=== PATIENT | male | born 1940 | race Caucasian/White ===

== ENCOUNTER 2019-10-30 01:45 | Day surgery (SDC) | payer MEDICARE, BC, SELFPAY ==
[2019-10-27 10:31] VITALS: BMI 26.6
--- NOTE | ~2019-10-30 | XR_ITS ---
EXAMINATION: XR retrograde pyelo w/stent RT EXAM DATE: 10/30/2019 11:41 INDICATION: Stone extraction. TECHNIQUE: Fluoroscopy used during XR retrograde pyelo w/stent RT performed by Dr. Francisco leo MD. The DAP for this procedure was 0.3 mGym2. FINDINGS: The right ureter was cannulated, injected. There is moderate right-sided hydronephrosis. A right-sided double-J ureteral stent was placed. Correlate with procedure note. IMPRESSION: Fluoroscopy used during XR retrograde pyelo w/stent RT. Reviewed, dictated and finalized at location [facility].
--- NOTE | 2019-10-30 10:22 | WPDHPUPDATE1 ---
History and Physical Update Update Date/Time: 10/30/19 10:22 History and Physical has been reviewed, including an updated exam of the patient. There are NO changes in the patient's condition. Risks, benefits, and alternatives have been discussed and questions answered. Patient agrees to proceed with procedure.
--- NOTE | 2019-10-30 10:39 | ECG_ITS ---
Measurements Intervals [place] Rate: 59 P: -5 FL: 157 QRS: -54 QRSD: 163 T: 134 QT: 453 QTc: 451 Interpretive Statements SINUS BRADYCARDIA LEFT AXIS DEVIATION LEFT BUNDLE BRANCH BLOCK ABNORMAL ECG Electronically Signed On 10-30-2019 11:33:36 CDT by Jean Tobias D.O.
[2019-10-30] MEDS: LACTATED RINGERS 1,000 ML 30 ML IV CONT (10:55)
--- NOTE | 2019-10-30 10:55 | WPDANESEPPF ---
Anes - Initial Pre Proc Eval Procedure: Operation Date: 10/30/19 13:00 Proposed Procedures p Cystoscopy, Right Ureteroscopy, Right Retrograde Pyelogram, Right Stone Extraction, Possible Left Stent Placement - Francisco Sweeney MD s Possible Holmium Laser Procedure - Francisco Sweeney MD Date/Time: 10/30/19 10:55 Surgeon: Francisco Sweeney MD Pre Op Diagnosis: right ureteral calculus Patient Data Age: 79 Gender: M Height: 5 ft 8 in Weight: 79.3 kg Allergies Allergy/AdvReac Type Severity Reaction Status Date / Time Penicillins Allergy Severe SORE Verified 10/30/19 10:47 INJECTION SITE propoxyphene Allergy Severe Palpitation Verified 10/30/19 10:47 s aspirin Allergy Unknown Abdominal Verified 10/30/19 10:47 Pain naproxen Allergy Unknown Abdominal Verified 10/30/19 10:47 Pain niacin AdvReac Severe HOT FACE Verified 10/30/19 10:47 Home Medications Medication Instructions Recorded Confirmed Type amlodipine 5 mg PO QPM 10/27/19 10/30/19 History cetirizine [Zyrtec] 5 mg PO QPM 10/27/19 10/30/19 History flaxseed oil 1,000 mg PO QPM 10/27/19 10/30/19 History multivitamin,mo-[id number] 1 tablet PO QPM 10/27/19 10/30/19 History [Complete Multivitamin] Patient hx anesthesia problems: none Family hx anesthesia problems: none PMFSH Past Medical History Medical History Aortic stenosis Bladder cancer Hypertension Anes - Eval Final PreProcedure Day of Procedure 10/30/19 10:55 Patient weight: overweight Heart: regular rate and rhythm and murmur Lungs: decreased breath sounds Airway: Mallampati scale class II Neurological: alert and oriented Last oral intake: >/= 8 hours ASA classification: III Emergent: no Anesthetic plan: proceed Anesthesia type and monitoring: general LMA and standard monitoring Informed Consent: The patient's anesthetic plan and its attendant risks and benefits were discussed with the patient/family/POA. Questions were solicited and answers provided to the satisfaction of the patient/family/POA.
[2019-10-30 11:01] VITALS: BP 146/60; PULSE 66; RESP 16; TEMP 37
[2019-10-30] MEDS: levoFLOXacin 500 MG/D5W 100 ML 500 MG/100 ML BAG 100 MG IVPB (11:11)
[2019-10-30] MEDS: LIDOCAINE HCL 2% GEL UROJET 10 ML PKG MUCOUS MEM (11:39)
--- NOTE | 2019-10-30 11:40 | PM.PROC ---
Procedure Note - Detailed Date of procedure: 10/30/19 Pre-op diagnosis: right ureteral calculus Post-op diagnosis: same Procedure performed: Cystoscopy, right retrograde pyelogram, right ureteroscopy with stone extraction, 4.8 Upper Sorbian stent placement Description of procedure: Patient was taken to the operative suite correctly identified. Once general anesthesia was obtained he was placed in the dorsal lithotomy position and prepped and draped in the usual sterile fashion. Twenty-two Upper Sorbian scope was inserted in the bladder. There are no tumors noted. The right ureteral orifice was Muniz with a guidewire. It was dilated with an 8/10 dilator. Rigid ureteral scope was then inserted the stone was visualized. We were able to retrieve it in its entirety using an escape basket. Pyelogram was then performed to confirm placement of the stent. A 4.8 contour stent was then placed with the proximal end coiled in the renal pelvis and the distal end in the bladder. Bladder was drained. 2% viscous lidocaine was inserted into the urethra patient was taken recovery room stable condition. Discharged home with pain meds and antibiotics. He will follow up 1 weeks time for stent removal. Anesthesia: GLMA Surgeon: Francisco Sweeney MD Drains: Yes Packing: No Pathology: yes Complications: No immediate complications Condition: stable Disposition: PACU
[2019-10-30 11:41] VITALS: BP 129/74; PULSE 95; RESP 14; TEMP 36.3; O2SAT 100
[2019-10-30 11:55] VITALS: BP 132/80; PULSE 88; RESP 12; O2SAT 95
[2019-10-30 12:06] VITALS: BP 132/79; PULSE 73; RESP 12
[2019-10-30 12:30] VITALS: BP 136/75; PULSE 67; RESP 14
== END 2019-10-30 12:48 | disposition home or self-care (01) ==
PROVIDERS: PCP Family Medicine; Visit Provider Urology
PROC: (CPT 52352; principal; 2019-10-30 13:00)
DX: N13.2 Hydronephrosis with renal and ureteral calculous obstruction (principal); I10 Essential (primary) hypertension; I35.0 Nonrheumatic aortic (valve) stenosis; Z79.82 Long term (current) use of aspirin
CPT/HCPCS: 52320; 74420; 82365; 88300; 93005; A9270; C1758; C1769; C2617; J1100; J1956; J2370; J2405; J2704; J3010; J7120; Q9966

== ENCOUNTER 2022-02-13 12:37 | Outpatient (CLI) | payer MEDICARE, BC, SELFPAY ==
--- NOTE | ~2022-02-13 | CT_ITS ---
EXAMINATION: CT abdomen pelvis wo/w con DATE: 02/13/2022 13:29 INDICATION: Malignant neoplasm of urinary bladder and TECHNIQUE: Computed tomography (CT) of the abdomen and pelvis was performed without and subsequently with 130 CC Omnipaque 300 intravenous contrast. Automated exposure control and iterative reconstructi on technique were employed. Exam dose: 996.17 mGy-cm total exam DLP. COMPARISON: 11/26/2014 CT abdomen pelvis FINDINGS: Mild left lower lobe discoid atelectasis or scarring. Cardiomegaly. No pericardial or pleur al effusion. Small sliding hiatal hernia. No hepatic space-occupying mass lesion. The gallbladder appears unremarkable. No bile duct or pancrea tic duct dilatation. No pancreatic mass lesion or calcification. There is a calcified left hepatic gr anuloma and there are multiple splenic calcified granulomas. Normal splenic size. Normal morphology of the adrenal glands. No urinary tract calculus or hydroureteronephrosis. There are bilateral parapelvic and cortical renal cysts, the largest right cortical cyst measuring up to 8 mm, the largest left cyst measuring approximately 3.8 cm. No urinary tract calculus or hydroure teronephrosis. There is prostate enlargement, impressing the base of the urinary bladder. No intraluminal mass lesio n of the urinary bladder is detected. There is up to 8.5 mm soft tissue thickening along the posterior urinary bladder wall. Residual or re current bladder neoplasm is not excluded. Cystoscopic correlation and possible biopsy should be consi dered. Bilateral fat-containing inguinal hernias. Small fat-containing umbilical hernia. Minimal colonic diverticulosis; no CT evidence of diverticulitis. There is resection of the colon at the mid transverse colon area. No bowel obstruction is evident. No intraperitoneal free air is detect ed. There is atherosclerotic calcification of the abdominal aorta and renal arteries. No abdominal aortic aneurysm. No intraperitoneal or retroperitoneal or pelvic mass lesion or adenopathy or ascites is no christian otherwise. There is osteopenia. Degenerative changes of the thoracic spine. Moderately severe degenerative disc disease at L5-S1. No suspicious osteolytic or osteoblastic lesions are noted. IMPRESSION: Nonspecific soft tissue thickening along the lower posterior bladder wall; residual or r ecurrent bladder malignancy is not excluded. Consider cystoscopic correlation and biopsy is clinicall y appropriate Bilateral renal cysts Status post right colon resection; minimal diverticulosis of the colon Small sliding hiatal hernia Bilateral fat-containing inguinal hernias, small fat-containing umbilical hernia. Cardiomegaly Reviewed, dictated and finalized at [facility]. Reviewed, dictated and finalized at location [facility]. IMPRESSION: Nonspecific soft tissue thickening along the lower posterior bladd er wall; residual or recurrent bladder malignancy is not excluded. Consider cys toscopic correlation and biopsy is clinically appropriate Bilateral renal cysts Status post right colon resection; minimal diverticulosis of the colon Small sliding hiatal hernia Bilateral fat-containing inguinal hernias, small fat-containing umbilical herni a. Cardiomegaly
[2022-02-13 13:17] LABS: Estimated Glomerular Filt Rate > 60
== END 2022-02-13 12:38 | disposition home or self-care (01) ==
PROVIDERS: Visit Provider Urology
DX: C67.9 Malignant neoplasm of bladder, unspecified (principal); K42.9 Umbilical hernia without obstruction or gangrene; Z48.815 Encounter for surgical aftercare following surgery on the digestive system; N28.1 Cyst of kidney, acquired; K40.90 Unilateral inguinal hernia, without obstruction or gangrene, not specified as recurrent; M47.817 Spondylosis without myelopathy or radiculopathy, lumbosacral region; I51.7 Cardiomegaly; K44.9 Diaphragmatic hernia without obstruction or gangrene
CPT/HCPCS: 74178; Q9967

== ENCOUNTER 2023-04-12 00:28 | Day surgery (SDC) | payer MEDICARE, BC, SELFPAY ==
[2023-04-09 13:38] VITALS: BMI 26.6
[2023-04-12] VITALS (18 sets, daily range): BP systolic 120–150; BP diastolic 62–80; PULSE 50–68; RESP 12–22; TEMP 36.6; O2SAT 95–99; BMI 26.1
[2023-04-12 07:37] LABS: Basophils Absolute Auto 0.1 K/mm3 (0.0-0.1); Basophils Percent Auto 1.2 % (0.2-1.2); Eosinophils Absolute Auto 0.2 K/mm3 (0-0.3); Eosinophils Percent Auto 3.6 % (0-4.4); Hematocrit 43.2 % (42.0-52.0); Hemoglobin 14.2 g/dL (14.0-18.0); Immature Granulocyte Absolute 0.02 K/mm3 (0.00-0.031); Immature Granulocyte Percent A 0.3 % (0-0.5); Lymphocytes Absolute Auto 1.75 K/mm3 (0.9-3.2); Lymphocytes Percent Auto 25.9 % (18.3-44.2); Mean Corpuscular HGB Conc 32.9 g/dl (32-36); Mean Corpuscular Volume 91.1 fl (80-100); Mean Platelet Volume 9.1 fl (7.4-10.4); Monocytes Absolute Auto 0.6 K/mm3 (0.1-0.6); Monocytes Percent Auto 8.6 % (2.6-8.5); Neutrophils Absolute Auto 4.1 K/mm3 (1.3-6.7); Neutrophils Percent Auto 60.4 % (45.5-73.1); Platelet Count Result 233 k/mm3 (150-375); Red Blood Count 4.74 M/mm3 (4.6-6.20); Red Cell Distribution Width 14.7 % (11.5-14.5); White Blood Count 6.8 K/mm3 (4.5-10.0)
[2023-04-12 07:47] LABS: INR 1.1; Prothrombin Time 14.1 Seconds (11.1-14.7)
[2023-04-12 07:53] LABS: Anion Gap 9 mmol/L (8-16); Blood Urea Nitrogen 18 mg/dL (9-20); Calcium 9.5 mg/dL (8.4-10.2); Carbon Dioxide 25 mmol/L (22-30); Chloride 107 mmol/L (98-107); Estimated CRCL calculation 56 ml/min; Estimated Glomerular Filt Rate > 60; Glucose 101 mg/dL (65-110); Potassium 3.9 mmol/L (3.4-5.0); Sodium 141 mmol/L (137-145)
--- NOTE | 2023-04-12 08:43 | WPDMODSED ---
Moderate Sedation Note-Pt Data Patient Data Diagnosis: Coronary artery disease by coronary CTA Present Complaint: No complaints Procedure to be performed/Plan: Left heart catheterization Allergies Allergy/AdvReac Type Severity Reaction Status Date / Time Penicillins Allergy Severe SORE Verified 04/12/23 07:09 INJECTION SITE propoxyphene Allergy Severe Palpitation Verified 04/12/23 07:09 s niacin AdvReac Severe HOT FACE Verified 04/12/23 07:09 aspirin AdvReac Unknown Abdominal Verified 04/12/23 07:09 Pain naproxen AdvReac Unknown Abdominal Verified 04/12/23 07:09 Pain Home Medications Medication Instructions Recorded Confirmed Type amlodipine 5 mg tablet 5 mg PO QPM 10/27/19 04/09/23 History cetirizine 10 mg tablet (Zyrtec) 10 mg PO QPM 10/27/19 04/09/23 History flaxseed oil 1,000 mg capsule 1,000 mg PO QPM 10/27/19 04/09/23 History multivitamin,dv-nauv-[id number] 1 tablet PO QPM 10/27/19 04/09/23 History (Complete Multivitamin tablet) aspirin 81 mg tablet,delayed 81 mg PO DAILY 04/09/23 04/09/23 History release atorvastatin 20 mg tablet 20 mg PO DAILY 04/09/23 04/09/23 History calcium carbonate 400 mg calcium 400 mg PO PRN PRN Heartburn 04/09/23 04/09/23 History (1,000 mg) chewable tablet Current Medications: Active Medications Sodium Chloride (Normal Saline Iv) 500 mls @ 100 mls/hr IV CONT .Q5H GUSTAVO Sedation/Anesthesia: No previous sedation/anesthesia problems (including family history). [facility] Past Medical History Medical History Aortic stenosis Bladder cancer Hypertension Social History Social History Smoking packs per day: 1 Smoking cigarettes per day: 20.0 Years smoked: 38 Smoking pack-years: 38.00 Smoking status: Former smoker Tobacco type: cigarettes Additional smoking assessment comments: quit 36 years ago Alcohol intake: never Substance use: never Substance use type: does not use Living arrangements: with family Spiritual care concerns: No Mod Sed Physical Exam Physical Exam Pre Procedural Exam: Normal: Appearance (Pleasant elderly man no distress), Neck, Throat, Airway, Lungs, Heart Size, Heart Rate, Heart Rhythm (Very soft grade 2 crescendo decrescendo murmur at the left sternal border), Neuro Exam and Extremities Hours since solid foods: 12 Hours since liquid intake: 12 Mallampati Classification: class II Internal Medicine - PN: Obj Da Vital Signs Vital Signs: Vital Signs - 24 hr 04/12/23 07:15 Temperature 36.6 C Pulse Rate 60 Respiratory Rate 16 Blood Pressure 141/78 H Pulse Oximetry 99 Oxygen Delivery Room Air Meds/Results Medications: Active Medications Generic Name Dose Route Start Last Admin Trade Name Freq PRN Reason Stop Dose Admin Sodium Chloride 500 mls @ 100 mls/hr 04/12/23 07:00 Normal Saline Iv IV CONT .Q5H GUSTAVO Labs 04/12/23 07:19 04/12/23 07:19 Labs: Laboratory Results - last 24 hr 04/12/23 07:19 WBC 6.8 RBC 4.74 Hgb 14.2 Hct 43.2 MCV 91.1 MCH 30.0 MCHC 32.9 RDW 14.7 H Plt Count 233 MPV 9.1 Immature Gran % (Auto) 0.3 Neut % (Auto) 60.4 Lymph % (Auto) 25.9 Dane % (Auto) 8.6 H Eos % (Auto) 3.6 Baso % (Auto) 1.2 Lymph # (Auto) 1.75 Dane # (Auto) 0.6 Eos # (Auto) 0.2 Baso # (Auto) 0.1 Abs Immat Gran (auto) 0.02 Absolute Neuts (auto) 4.1 Absolute Nucleated RBC 0.0 Nucleated RBC % 0.0 PT 14.1 INR 1.1 Sodium 141 Potassium 3.9 Chloride 107 Carbon Dioxide 25 Anion Gap 9 BUN 18 Creatinine 0.90 Estim Creat Clear Calc 56 Estimated GFR > 60 Glucose 101 Calcium 9.5 ASA Classification/Sedation ASA Classification/Sedation ASA Class: II Emergent: No Risks: Risks, benefits and alternatives explained and patient/family accepted plan for sedation. Patient re-evaluated immedia
--- NOTE | 2023-04-12 08:44 | PM.IMHP ---
H&P: HPI History of Present Illness Date/Time: 04/12/23 08:44 Chief Complaint: No complaints/abnormal CT coronary CTA Narrative: This is an 82-year-old man who is been found to have coronary disease by virtue of couple of abnormal stress test in the past and a recently performed CT angiogram with abnormal findings indicating evidence of coronary disease. He currently reports to be asymptomatic and even though he is at an advanced age leads a fairly active lifestyle and does not have any exertional symptoms. He has been followed in the office by my partner, Dr. Barron and because of findings on recent CTA suggesting significant LAD and right coronary disease a coronary angiogram has been recommended and scheduled for today. He also has a history of hypertension and a chronic left bundle branch block as well as mild aortic valve stenosis. Review of Systems Constitutional: Constitutional: Reports no additional constitutional complaints Eyes: Eyes: Reports no additional eye complaints ENT: Reports system reviewed and no additional complaints, except as documented Cardiovascular: Cardiovascular: Reports no additional cardiovascular complaints Respiratory: Respiratory: Reports no additional respiratory complaints Gastrointestinal: Gastrointestinal: Reports no additional gastrointestinal complaints Musculoskeletal: Musculoskeletal: Reports no additional musculoskeletal complaints Integumentary/Breasts: Skin/Breast: Reports system reviewed and no additional complaints, except as docu Neurologic: Comments: Alert and oriented x3 [facility] Past Medical History Medical History (Updated 04/12/23 @ 08:48 by Jeremy Cobb MD) Aortic stenosis Bladder cancer Hypertension Social History Social History Smoking packs per day: 1 Smoking cigarettes per day: 20.0 Years smoked: 38 Smoking pack-years: 38.00 Smoking status: Former smoker Tobacco type: cigarettes Additional smoking assessment comments: quit 36 years ago Alcohol intake: never Substance use: never Substance use type: does not use Living arrangements: with family Spiritual care concerns: No Meds Home Medications and Allergies Home Medications Medication Instructions Recorded Confirmed Type amlodipine 5 mg tablet 5 mg PO QPM 10/27/19 04/09/23 History cetirizine 10 mg tablet (Zyrtec) 10 mg PO QPM 10/27/19 04/09/23 History flaxseed oil 1,000 mg capsule 1,000 mg PO QPM 10/27/19 04/09/23 History multivitamin,pf-ehgg-bmfwkoem 1 tablet PO QPM 10/27/19 04/09/23 History (Complete Multivitamin tablet) aspirin 81 mg tablet,delayed 81 mg PO DAILY 04/09/23 04/09/23 History release atorvastatin 20 mg tablet 20 mg PO DAILY 04/09/23 04/09/23 History calcium carbonate 400 mg calcium 400 mg PO PRN PRN Heartburn 04/09/23 04/09/23 History (1,000 mg) chewable tablet Allergies Allergy/AdvReac Type Severity Reaction Status Date / Time Penicillins Allergy Severe SORE Verified 04/12/23 07:09 INJECTION SITE propoxyphene Allergy Severe Palpitation Verified 04/12/23 07:09 s niacin AdvReac Severe HOT FACE Verified 04/12/23 07:09 aspirin AdvReac Unknown Abdominal Verified 04/12/23 07:09 Pain naproxen AdvReac Unknown Abdominal Verified 04/12/23 07:09 Pain Vital Signs Vital Signs - 24 hr 04/12/23 07:15 Temperature 36.6 C Pulse Rate 60 Respiratory Rate 16 Blood Pressure 141/78 H Pulse Oximetry 99 Oxygen Delivery Room Air Exam Const: General: comfortable and no acute distress Other: Pleasant healthy-appearing elderly man no distress HENMT: Mouth: Yes moist mucous membranes Eyes: Sclera: sclerae normal Neck: Neck: supple and no JVD Other: No carotid bruits are audible Resp: Effort & Inspection: normal respiratory effort Auscultation: clear to auscultation bilaterally Cardio: Rate: regular rate Rhythm: regular rhythm
--- NOTE | 2023-04-12 09:18 | WPDCARDPROC ---
Cardiac Cath Procedure Note Date of procedure:: 04/12/23 Performing physician:: Jeremy Cobb MD Indication:: Abnormal coronary CTA Brief clinical history:: this is an asymptomatic 82-year-old man with hypertension and left bundle branch block was been found to have evidence of coronary disease by CTA. Procedure Procedure performed:: Left ventriculogram coronary angiogram Sedation/Medication given:: fentanyl 50 mg Versed 2 mg case start time 9:00 a.m. case end time 9:14 a.m. sedation provided by Natalie Raya RN, trained observer Access site:: right femoral artery Estimated blood loss:: 25 cc Procedure note:: this patient was brought to the cardiac catheterization lab in the postabsorptive state where the right femoral triangle was prepared and draped in the usual fashion. Anesthesia was provided with 1% lidocaine infiltrated locally. Using the modified Seldinger technique the femoral artery was punctured and a 5 [place] vascular sheath was placed. After this I used a 5 [place] angled pigtail catheter to measure left-sided hemodynamics and inject the left ventriculogram in the 30 degree NGUYEN projection. Following this I used a standard 5 [place] FL4 catheter to engage inject the left coronary artery in multiple projections and then a 5 [place] JR4 catheter to engage inject the right coronary artery. The cineangiograms were then reviewed and the case was terminated. The patient then had an angiogram done of the femoral artery through the sheath after which I determined to have the sheath removed by direct manual compression. He tolerated procedure well and went there were no complications. The patient had no evidence of groin hematoma upon leaving the medical lab scientist. Findings:: Hemodynamics: Central aortic pressure is 136 over 56 left ventricle 138/5 end-diastolic pressure 12 there is no gradient on pullback across the aortic valve. Left ventricle: The LV is mildly enlarged there is mild global systolic dysfunction identified with an ejection fraction of 40-45% by visual estimation there were no regional wall motion abnormalities. The left main coronary artery is widely patent the LAD is a large caliber vessel it extends down to around the apex and provides a significant amount of inferior wall perfusion as well. There is moderate to heavy calcification in the proximal 3rd of the LAD. The vessel however is pain with no stenotic lesions throughout its entire extent. The circumflex is moderate to large caliber vessel giving rise to the marginal branches and a posterior branch. The circumflex is free of stenosis. The right coronary artery is large in caliber mildly calcified and is dominant to the inferior wall. The right coronary artery is also free of stenotic lesions. Conclusion:: 1. Right coronary dominant circulation with coronary calcification involving the proximal LAD and mid RCA but with no stenotic lesions Being identified. 2. Mild left ventricular systolic dysfunction with ejection fraction in the 40-45% by visual estimation 3. no aortic transvalvular coronary gradient on pullback in this patient who reportedly has evidence of mild aortic stenosis by previous echo Jeremy Cobb MD FACC
== END 2023-04-12 15:15 | disposition home or self-care (01) ==
PROVIDERS: PCP Pediatrics; Visit Provider Specialist
PROC: 4A023N7 Measurement of Cardiac Sampling and Pressure, Left Heart, Percutaneous Approach (ICD-10-PCS; CPT 93452; principal; 2023-04-12 08:30)
DX: I25.10 Atherosclerotic heart disease of native coronary artery without angina pectoris (principal); R93.1 Abnormal findings on diagnostic imaging of heart and coronary circulation; I44.7 Left bundle-branch block, unspecified; I10 Essential (primary) hypertension; I35.0 Nonrheumatic aortic (valve) stenosis; Z85.51 Personal history of malignant neoplasm of bladder; Z87.891 Personal history of nicotine dependence; Z79.82 Long term (current) use of aspirin
CPT/HCPCS: 36415; 80048; 85025; 85610; 93458; C1887; C1894; J1644; J2250; J3010; J7040